=== PATIENT | female | born 1975 | race Caucasian/White ===

== ENCOUNTER 2017-11-06 08:39 | Emergency (ER) | payer OTHER ==
[2017-11-06] MEDS ORDERED: NA CHLORIDE 0.9% 1,000 ML ONE (09:11)
[2017-11-06] MEDS ORDERED: DICYCLOMINE HCL 10 MG CAP ONE (09:11)
[2017-11-06 09:14] LABS: Urine Blood NEGATIVE (NEG); Urine Glucose NEGATIVE (NEG); Urine Protein NEGATIVE (NEG)
[2017-11-06 09:23] LABS: Absolute Lymphocytes (CBC) 1.4 K/uL (0.7-4.9); Absolute Monocytes 0.4 K/uL (0.1-1.3); Absolute Neutrophil 2.8 K/uL (1.8-8.0); Basophils % 0.9 % (0-1.3); Eosinophils % 1.9 % (0-4.4); Hematocrit 35.5 % (36.0-45.0); Lymphocytes % 29.8 % (15.3-44.8); MCH 31.5 pg (27.0-35.0); MCV 90.3 fL (80-100); MPV 7.7 fL (7.6-11.3); Monocytes % 8.9 % (3.3-12.3); RBC Red Blood Cell Count 3.93 M/uL (3.86-4.86)
[2017-11-06 09:28] LABS: Urine Bacteria <20 /HPF (<20); Urine Culture Reflex Order NOT NEEDED; Urine RBC <5 /HPF (NONE SEEN)
[2017-11-06 09:39] LABS: Albumin 4.1 g/dL (3.4-5.0); Bilirubin Direct 0.1 mg/dL (0-0.2); Bilirubin Total 0.4 mg/dL (0.2-1.0); Potassium 3.4 mmol/L (3.5-5.1); Protein, Total 7.2 g/dL (6.4-8.2)
--- NOTE | 2017-11-06 11:22 | RAD REPORT ---
EXAM DESCRIPTION: CTAbdomen Pelvis W Contrast - 11/06/2017 11:00 am CLINICAL HISTORY: Abdominal pain. left side abdominal pain COMPARISON: No comparisons TECHNIQUE: Biphasic CT imaging of the abdomen and pelvis was performed with 100 ml non-ionic IV cont rast. All CT scans are performed using dose optimization technique as appropriate and may include automated exposure control or mA/KV adjustment according to patient size. FINDINGS: The lung bases are clear. The liver, spleen, pancreas, adrenal glands and kidneys are within normal limits. No bowel obstruction, free air, free fluid or abscess. Equivocal mucosal thickening involving the asc ending colon and hepatic flexure. The appendix is normal. No evidence of significant lymphadenopathy . No suspicious bony findings. IMPRESSION: Normal appendix. Equivocal mucosal thickening of the colon on the right may indicate a mild colitis.
--- NOTE | 2017-11-06 11:33 | ER ---
Nurse's Notes [facility] Name: Jordan Lara Age: 42 yrs Sex: Female : 1975 Arrival Date: 11/06/2017 Time: 08:41 Bed 5 Private MD: Diagnosis: Unspecified abdominal pain Presentation: 11/06 08:46 Presenting complaint: Patient states: i have been having this stomach pain since last week,right on my belly button; its a crampy type of pain; denies nausea and vomiting; denies diarrhea; pain is 6/10; denies taking meds [employer];. Transition of care: patient was not received from another setting of care. Onset of symptoms was November 02, 2017. Risk Assessment: Do you want to hurt yourself or someone else? Patient reports no desire to harm self or others. Initial Sepsis Screen: Does the patient meet any 2 criteria? No. Patient's initial sepsis screen is negative. Does the patient have a suspected source of infection? No. Patient's initial sepsis screen is negative. Care prior to arrival: None. 08:46 Method Of Arrival: Ambulatory 08:46 Acuity: ARMANDO 3 Triage Assessment: 08:52 General: Appears in no apparent distress. uncomfortable, Behavior is calm, cooperative, hj appropriate for age. Pain: Complains of pain in abdomen. GI: Abdomen is non-distended, Bowel sounds present X 4 quads. Abd is soft. 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 - Social history:: Smoking status: Patient/guardian denies using tobacco, Patient/guardian denies using alcohol. - Ebola Screening: : Patient negative for fever greater than or equal to 101.5 degrees Fahrenheit, and additional compatible Ebola Virus Disease symptoms. Screenin:52 Abuse screen: Denies threats or abuse. Denies injuries from another. Nutritional hj screening: No deficits noted. Tuberculosis screening: No symptoms or risk factors identified. Fall Risk None identified. Assessment: 09:00 General: Appears in no apparent distress. uncomfortable, Behavior is calm, cooperative, hj appropriate for age. Pain: Complains of pain in abdomen Pain currently is 6 out of 10 on a pain scale. Neuro: Level of Consciousness is awake, alert, obeys commands, Oriented to person, place, time, situation, Appropriate for age. Cardiovascular: Capillary refill < 3 seconds Patient's skin is warm and dry. Respiratory: Airway is patent Respiratory effort is even, unlabored, Respiratory pattern is regular, symmetrical. GI: Reports lower abdominal pain, upper abdominal pain. : No signs and/or symptoms were reported regarding the genitourinary system. EENT: No signs and/or symptoms were reported regarding the EENT system. Derm: No signs and/or symptoms reported regarding the dermatologic system. Musculoskeletal: No signs and/or symptoms reported regarding the musculoskeletal system. Vital Signs: 08:53 BP 115 / 66; Pulse 92; Resp 18; Temp 98.1(TE); Pulse Ox 100% on R/A; Weight 77.11 kg; hj Height 5 ft. 7 in. (170.18 cm); Pain 6/10; 09:54 BP 113 / 70; Pulse 71; Resp 18; Pulse Ox 100% ; sv 11:50 BP 112 / 70; Pulse 77; Resp 16 S; Pulse Ox 99% on R/A; Pain 0/10; sg 08:53 Body Mass Index 26.63 (77.11 kg, 170.18 cm) ED Course: 08:41 Patient arrived in ED. rg4 08:44 [facility]. cp 08:44 Orlando Ramirez MD is Attending Physician. cp 08:46 Royal Jonas, VERNON is Primary Nurse. hj 08:48 Triage completed. hj 08:52 Arm band placed on right wrist. hj 08:52 Patient has correct armband on for positive identification. Placed in gown. Bed in low hj position. Call light in reach. Side rails up X 1. 08:57 Urine Microscopic Only Sent. 5 08:57 Urine collected: clean catch specimen, clear. 5 09:00 Initial lab(s) drawn, by ms, sent to lab. Inserted saline lock: 22 gauge in right hj antecubital area, using aseptic technique. Blood collected. 09:00 No provider procedures requiring assistance completed. 09:19 Primary Nurse role handed off by Royal Jonas, VERNON 09:19 Ashwin Richmond, RN is Primary Nurse. 11:00 CT Abd/Pelvis - W/Contrast In Process Unspecified. EDMS 11:11 CT completed. Patient tolerated procedure well. Patient moved back from CT. 11:32 Escobar Sam MD is Referral Physician. cp 12:00 IV discontinued, intact, bleeding controlled, No redness/swelling at site. Pressure sg dressing applied. Administered Medications: 08:55 Drug: NS 0.9% 1000 ml Route: IV; Rate: 1 bolus; Site: right antecubital; 08:55 Drug: Bentyl 20 mg Route: PO; 09:30 Follow up: Response: No adverse reaction; Pain is unchanged, physician notified sg 11:55 Drug: Potassium Effervescent Tablet 25 mEq Route: PO; sg 12:00 Follow up: Response: No adverse reaction sg Outcome: 11:32 Discharge ordered by MD. cp 12:00 Discharged to home ambulatory, with family. 12:00 Condition: good 12:00 Discharge instructions given to patient, family, Instructed on discharge instructions, follow up and referral plans. medication usage, safety practices, Demonstrated understanding of instructions, follow-up care, medications, Prescriptions given X 4. 12:06 Patient left the ED. dm5 Signatures: Dispatcher [employer] Janelle Stafford RN RN dm5 Mami Florez RN RN sv Gay, Steven, RN RN sg Jones, Susan Royal Jonas, Orlando Mireles RN, PA PA cp Garcia, Rubi [facility] Christi Ojeda [facility]
--- NOTE | 2017-11-06 11:33 | EDPHYS ---
Physician Documentation [facility] Name: Jordan Lara Age: 42 yrs Sex: Female : 1975 Arrival Date: 11/06/2017 Time: 08:41 Bed 5 Private MD: ED Physician Orlando Ramirez HPI: 11/06 09:00 This 42 yrs old Female presents to ER via Ambulatory with complaints of cp Abdominal Pain. 09:00 The patient presents with abdominal pain left mid abdomen. Onset: The symptoms/episode cp began/occurred last week. The symptoms do not radiate. Associated signs and symptoms: Pertinent negatives: anorexia, blood in stools, chest pain, constipation, diarrhea, dysuria, fever, hematuria, vomiting. The symptoms are described as crampy. Modifying factors: the symptoms are aggravated by movement. Severity of pain: in the emergency department the pain has improved moderately. 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 - Social history:: Smoking status: Patient/guardian denies using tobacco, Patient/guardian denies using alcohol. - Ebola Screening: : Patient negative for fever greater than or equal to 101.5 degrees Fahrenheit, and additional compatible Ebola Virus Disease symptoms. ROS: 09:05 Constitutional: Negative for body aches, chills, fever, poor PO intake. cp 09:05 Eyes: Negative for injury, pain, redness, and discharge. cp 09:05 ENT: Negative for drainage from ear(s), ear pain, sore throat, difficulty swallowing, difficulty handling secretions. 09:05 Cardiovascular: Negative for chest pain, edema, palpitations. 09:05 Respiratory: Negative for cough, shortness of breath, wheezing. 09:05 Abdomen/GI: Positive for abdominal pain, Negative for nausea, vomiting, and diarrhea, black/tarry stool, rectal bleeding. 09:05 Back: Negative for pain at rest, pain with movement, radiated pain. 09:05 : Negative for urinary symptoms, vaginal bleeding, vaginal discharge. 09:05 Skin: Negative for cellulitis, rash. 09:05 Neuro: Negative for altered mental status, headache, weakness. 09:05 All other systems are negative. Exam: 09:12 Constitutional: The patient appears in no acute distress, alert, awake, non-toxic, well cp developed, well nourished. 09:12 Head/Face: Normocephalic, atraumatic. cp 09:12 Eyes: Periorbital structures: appear normal, Conjunctiva: normal, no exudate, no injection, Sclera: no appreciated abnormality, Lids and lashes: appear normal, bilaterally. 09:12 ENT: External ear(s): are unremarkable, Nose: is normal, Mouth: Lips: moist, Oral mucosa: pink and intact, moist, Posterior pharynx: is normal, airway is patent, no erythema, no exudate. 09:12 Neck: ROM/movement: is normal, is supple, without pain, no range of motions limitations, no nuchal rigidity. 09:12 Chest/axilla: Inspection: normal, Palpation: is normal, no crepitus, no tenderness. 09:12 Cardiovascular: Rate: normal, Rhythm: regular. 09:12 Respiratory: the patient does not display signs of respiratory distress, Respirations: normal, no use of accessory muscles, no retractions, no splinting, no tachypnea, Breath sounds: are clear throughout, no decreased breath sounds, no stridor, no wheezing. 09:12 Abdomen/GI: Inspection: abdomen appears normal, Bowel sounds: active, all quadrants, Palpation: soft, in all quadrants, mild abdominal tenderness, in the left mid abdomen, rebound tenderness, is not appreciated, voluntary guarding, is not appreciated, involuntary guarding, is not appreciated. 09:12 Back: CVA tenderness, is absent. 09:12 Skin: cellulitis, is not appreciated, no rash present. Vital Signs: 08:53 BP 115 / 66; Pulse 92; Resp 18; Temp 98.1(TE); Pulse Ox 100% on R/A; Weight 77.11 kg; hj Height 5 ft. 7 in. (170.18 cm); Pain 6/10; 09:54 BP 113 / 70; Pulse 71; Resp 18; Pulse Ox 100% ; sv 11:50 BP 112 / 70; Pulse 77; Resp 16 S; Pulse Ox 99% on R/A; Pain 0/10; sg 08:53 Body Mass Index 26.63 (77.11 kg, 170.18 cm) hj MDM: 08:48 Patient medically screened. cp 09:00 Differential diagnosis: cholecystitis, Cholelithiasis, gastritis, pancreatitis, cp Pyelonephritis, Ureterolithiasis, urinary tract infection. 11:30 Data reviewed: vital signs, nurses notes, lab test result(s), radiologic studies, CT cp scan. 11:30 Special discussion: Based on the patient's Hx, exam, and Dx evaluation, there is no cp indication for emergent surgery or inpatient Tx. It is understood by the patient/guardian that if the Sx's persist or worsen they need to return immediately for re-evaluation. 11/06 08:55 Order name: Amylase, Serum; Complete Time: 10:10 cp 11/06 10:10 Interpretation: Abnormal: SHAYAN 195. 11/06 08:55 Order name: Basic Metabolic Panel; Complete Time: 10:10 cp 11/06 10:10 Interpretation: Normal except: K 3.4; CL 108; GFR 61. cp 11/06 08:55 Order name: CBC with Diff; Complete Time: 09:37 cp 11/06 09:37 Interpretation: Normal except: HCT 35.5. cp 11/06 08:55 Order name: Creatinine for Radiology; Complete Time: 10:10 cp 11/06 10:10 Interpretation: Normal except: GFR 55. cp 11/06 08:55 Order name: Hepatic Function; Complete Time: 10:10 cp 11/06 10:11 Interpretation: Reviewed. 11/06 08:55 Order name: Lipase; Complete Time: 10:10 cp 11/06 10:11 Interpretation: Within normal limits: LIP 114. 11/06 08:44 Order name: Urine Dipstick-Ancillary (obtain specimen); Complete Time: 08:55 cp 11/06 08:55 Order name: Urine Microscopic Only; Complete Time: 09:37 cp 11/06 09:37 Interpretation: Normal except: SQEPI 20-50. cp 11/06 08:55 Order name: CT Abd/Pelvis - W/Contrast; Complete Time: 11:26 cp 11/06 09:11 Order name: Urine Dipstick--Ancillary (enter results); Complete Time: 09:37 bd 11/06 09:37 Interpretation: Normal except: UESTR TRACE. cp 11/06 09:11 Order name: Urine --Ancillary (enter results); Complete Time: 09:37 bd 11/06 08:44 Order name: Urine Test (obtain specimen); Complete Time: 08:55 cp 11/06 08:55 Order name: IV Saline Lock; Complete Time: 09:05 cp 11/06 08:55 Order name: Labs collected and sent; Complete Time: 09:05 Administered Medications: 08:55 Drug: NS 0.9% 1000 ml Route: IV; Rate: 1 bolus; Site: right antecubital; 08:55 Drug: Bentyl 20 mg Route: PO; 09:30 Follow up: Response: No adverse reaction; Pain is unchanged, physician notified 11:55 Drug: Potassium Effervescent Tablet 25 mEq Route: PO; 12:00 Follow up: Response: No adverse reaction sg Disposition: 11/06/17 11:32 Discharged to Home. Impression: Unspecified abdominal pain. - Condition is Stable. - Discharge Instructions: Abdominal Pain, Adult. - Prescriptions for Bentyl 20 mg Oral Tablet - take 2 tablet by ORAL route every 6 hours As needed; 40 tablet. Zofran 4 mg Oral Tablet - take 1 tablet by ORAL route every 12 hours As needed; 20 tablet. Cipro 500 mg Oral Tablet - take 1 tablet by ORAL route every 12 hours for 7 days; 14 tablet. Metronidazole 500 mg Oral Tablet - take 1 tablet by ORAL route every 8 hours for 7 days; 21 tablet. - Medication Reconciliation Form, Thank You Letter, Antibiotic Education, Prescription Opioid Use form. - Follow up: Escobar Sam MD; When: 2 - 3 days; Reason: Recheck today's complaints. - Problem is new. - Symptoms have improved. Addendum: 11/07/2017 12:19 Co-signature as Attending Physician, Orlando Ramirez MD I agree with the assessment and c valladares plan of care. Signatures: Dispatcher [employer] Janelle Stafford RN RN dm5 Ashwin Richmond RN RN sg Anderson, Corey, MD MD cha Joaquin, Henry RN Orlando Mireles PA PA cp Corrections: (The following items were deleted from the chart) 11/06 12:06 11:32 11/06/2017 11:32 Discharged to Home. Impression: Unspecified abdominal pain. dm5 Condition is Stable. Forms are Medication Reconciliation Form, Thank You Letter, Antibiotic Education, Prescription Opioid Use. Follow up: Escobar Sam; When: 2 - 3 days; Reason: Recheck today's complaints. Problem is new. Symptoms have improved. cp
[2017-11-06] MEDS ORDERED: POTASSIUM 25 MEQ EFFERV TAB ONE (11:56)
== END 2017-11-06 12:06 | disposition home or self-care (01) ==
LOC: ER 08:39
DX: R10.9 Unspecified abdominal pain (principal); Z88.0 Allergy status to penicillin; Z91.040 Latex allergy status; Z91.048 Other nonmedicinal substance allergy status
CPT/HCPCS: 36415; 74177; 80048; 80076; 81003; 81015; 81025; 82150; 83690; 85025; 99284; J7030; Q9967